=== PATIENT | male | born 1955 | race African-American/Black ===

== ENCOUNTER 2018-12-07 05:09 | Inpatient (IN) ==
[2018-12-07 05:49] LABS: Basophils % 0.2 % (0.0-0.8); Eosinophils % 0.1 % (0.00-10.9); Hematocrit 42.4 VOL% (42.0-52.0); Hemoglobin 13.6 GM/DL (14.0-18.0); Immature Granulocytes % 0.3 %; Immature Granulocytes Absolute 0.04 #; Lymphocytes # 1.5 10*3/uL (1.4-4.0); Lymphocytes % 12.8 % (21.2-54.2); Mean Corpuscular HGB Conc 32.1 GM/DL (32-36); Mean Corpuscular Volume 90.2 FL (87-102); Mean Platelet Volume 10.4 FL (9.6-12.0); Monocytes % 6.6 % (1.7-12.7); Platelet Count 255 T/CUMM (130-400); Red Cell Distribution Width 12.4 % (9.3-17.3); White Blood Count 11.7 T/CUMM (4-12)
[2018-12-07 05:56] LABS: PT Patient Result 10.7 SECS; Partial Thromboplastin Time 30.6 SECS (0-40)
[2018-12-07 06:02] LABS: Albumin 3.9 G/DL (3.4-5.0); Bilirubin,Total 0.7 MG/DL (0.2-1.0); Calcium 9.2 MG/DL (8.5-10.1); Osmolality,Calculated 277.5 MOS/KG (273-304)
[2018-12-07] MEDS ORDERED: NITROGLYCERIN 2% OINT 1 INCH/GM PACK TOP STA (06:10)
[2018-12-07] MEDS ORDERED: ONDANSETRON 4 MG/2 ML VIAL IV PRN ×2 (06:10→06:43)
[2018-12-07] MEDS ORDERED: ENOXAPARIN 100 MG/ML SYRINGE SUBCUT STA (06:10)
[2018-12-07] MEDS ORDERED: METOPROLOL TARTRATE 5 MG/5 ML VIAL IV STA (06:10)
[2018-12-07] MEDS ORDERED: MORPHINE 4 MG/1 ML VIAL IV PRN (06:10)
[2018-12-07] MEDS ORDERED: MAGNESIUM SULF RIDER 2 GM in PREMIX 1 EACH IV PRN (06:43)
[2018-12-07] MEDS ORDERED: ACETAMINOPHEN 325 MG TABLET PO PRN (06:43)
[2018-12-07] MEDS ORDERED: DOCUSATE SODIUM 100 MG CAPSULE PO PRN (06:43)
[2018-12-07] MEDS ORDERED: NITROGLYCERIN DRIP 50 MG/250 ML BOTTLE IV PRN (06:48)
[2018-12-07] MEDS ORDERED: NICOTINE 21 MG/24 HR PATCH TRANSDERM PRN (06:49)
[2018-12-07] MEDS ORDERED: hydrALAZINE 20 MG/1 ML VIAL ONE (07:08)
[2018-12-07] MEDS ORDERED: hydrALAZINE 20 MG/1 ML VIAL IV STA (07:13)
[2018-12-07] MEDS: ATORVASTATIN 40 MG TABLET PO SCH (10:12)
[2018-12-07] MEDS: PANTOPRAZOLE 40 MG TABLET PO SCH (10:12)
[2018-12-07] MEDS ORDERED: ALUM/MAG/SIMETH/LIDO VISC 1:1 30 ML BOTTLE PO ONE (11:04)
[2018-12-07] MEDS: LOSARTAN 25 MG TABLET PO SCH ×2 (11:21→20:50)
[2018-12-07] MEDS ORDERED: hydrALAZINE 20 MG/1 ML VIAL IV PRN (11:34)
[2018-12-07] MEDS: CARVEDILOL 12.5 MG TABLET PO SCH ×2 (13:10→20:50)
[2018-12-07 13:24] LABS: Troponin I < 0.015 NG/ML (0.00-0.045)
[2018-12-07 15:31] LABS: Troponin I < 0.015 NG/ML (0.00-0.045)
[2018-12-07] MEDS: niCARdipine INJ 25 MG in SODIUM CHLORIDE 0.9% 240 ML IV PRN ×2 (15:56→18:30)
[2018-12-07] MEDS ORDERED: ENOXAPARIN 40 MG/0.4 ML SYRINGE SUBCUT SCH (16:30)
[2018-12-07] MEDS ORDERED: ENOXAPARIN 100 MG/ML SYRINGE SUBCUT SCH (18:00)
[2018-12-07] MEDS: MORPHINE 4 MG/1 ML VIAL IV PRN ×2 (18:08→21:28)
[2018-12-07] MEDS ORDERED: CARVEDILOL 12.5 MG TABLET PO SCH (21:00)
[2018-12-07] MEDS: niCARdipine INJ 50 MG in SODIUM CHLORIDE 0.9% 480 ML IV PRN (21:29)
[2018-12-08] MEDS: MORPHINE 4 MG/1 ML VIAL IV PRN ×2 (04:10→09:45)
[2018-12-08] MEDS: niCARdipine INJ 50 MG in SODIUM CHLORIDE 0.9% 480 ML IV PRN (04:11)
[2018-12-08 04:30] LABS: Basophils % 0.1 % (0.0-0.8); Eosinophils % 0.2 % (0.00-10.9); Hematocrit 46.8 VOL% (42.0-52.0); Hemoglobin 14.7 GM/DL (14.0-18.0); Immature Granulocytes % 0.4 %; Immature Granulocytes Absolute 0.06 #; Lymphocytes # 1.9 10*3/uL (1.4-4.0); Lymphocytes % 12.7 % (21.2-54.2); Mean Corpuscular HGB Conc 31.4 GM/DL (32-36); Mean Corpuscular Volume 90.3 FL (87-102); Mean Platelet Volume 10.3 FL (9.6-12.0); Monocytes % 8.1 % (1.7-12.7); Neutrophils % 78.5 % (38.7-73.9); Platelet Count 277 T/CUMM (130-400); Red Blood Count 5.18 MC/CUMM (3.8-5.5); Red Cell Distribution Width 12.5 % (9.3-17.3); White Blood Count 14.8 T/CUMM (4-12)
[2018-12-08 04:52] LABS: Albumin 3.2 G/DL (3.4-5.0); Bilirubin,Total 0.9 MG/DL (0.2-1.0); Osmolality,Calculated 281.4 MOS/KG (273-304); Risk Ratio 2.76; Total Protein 7.5 G/DL (6.4-8.3); VLDL CHOLESTEROL 34.6 MG/DL
[2018-12-08] MEDS: PANTOPRAZOLE 40 MG TABLET PO SCH (08:42)
[2018-12-08] MEDS: amLODIPine 10 MG TABLET PO SCH (08:42)
[2018-12-08] MEDS: LOSARTAN 50 MG TABLET PO SCH ×2 (08:42→22:17)
[2018-12-08] MEDS: CARVEDILOL 25 MG TABLET PO SCH ×2 (08:42→22:17)
[2018-12-08] MEDS: ATORVASTATIN 40 MG TABLET PO SCH (08:42)
[2018-12-08] MEDS ORDERED: amLODIPine 5 MG TABLET PO SCH (13:00)
[2018-12-08] MEDS: ASPIRIN EC 81 MG TABLET PO SCH (13:25)
[2018-12-09 05:06] LABS: Basophils % 0.2 % (0.0-0.8); Eosinophils # 0.1 10*3/uL (0.0-0.87); Eosinophils % 1.2 % (0.00-10.9); Hematocrit 40.5 VOL% (42.0-52.0); Hemoglobin 12.9 GM/DL (14.0-18.0); Immature Granulocytes % 0.4 %; Immature Granulocytes Absolute 0.04 #; Lymphocytes # 3.2 10*3/uL (1.4-4.0); Lymphocytes % 28.9 % (21.2-54.2); Mean Corpuscular HGB Conc 31.9 GM/DL (32-36); Mean Corpuscular Volume 91.4 FL (87-102); Mean Platelet Volume 10.6 FL (9.6-12.0); Monocytes % 9.1 % (1.7-12.7); Neutrophils % 60.2 % (38.7-73.9); Platelet Count 256 T/CUMM (130-400); Red Blood Count 4.43 MC/CUMM (3.8-5.5); Red Cell Distribution Width 12.4 % (9.3-17.3)
[2018-12-09 05:29] LABS: Calcium 8.8 MG/DL (8.5-10.1); Osmolality,Calculated 284.1 MOS/KG (273-304)
[2018-12-09] MEDS ORDERED: LACTATED RINGERS 500 ML IV SCH (08:00)
[2018-12-09] MEDS ORDERED: LIDOCAINE 2% 5 ML VIAL ONE (10:00)
[2018-12-09] MEDS ORDERED: PROPOFOL 500 MG/50 ML BOTTLE IV ONE (10:00)
[2018-12-09] MEDS ORDERED: SUCRALFATE 1 GM/10 ML UDCUP PO SCH (11:30)
[2018-12-09] MEDS: CARVEDILOL 25 MG TABLET PO SCH (11:38)
[2018-12-09] MEDS: ASPIRIN EC 81 MG TABLET PO SCH (11:38)
[2018-12-09] MEDS: LOSARTAN 50 MG TABLET PO SCH (11:38)
[2018-12-09] MEDS: amLODIPine 10 MG TABLET PO SCH (11:38)
[2018-12-09] MEDS: PANTOPRAZOLE 40 MG TABLET PO SCH (11:39)
[2018-12-09 11:45] VITALS: BP 166/88
[2018-12-09] MEDS ORDERED: PANTOPRAZOLE 40 MG TABLET PO SCH (21:00)
== END 2018-12-09 14:55 | disposition home or self-care (01) | DRG 305 ==
LOC: EDBD → EDUNIT# → EDSEX → SUATTDRO → N.EDINP 05:09 → N.SDSINP 05:09 → N.ED 05:09 → N.TELES 08:30 → N.ICU 15:41 → N.TELEN 12-08 20:13
PROVIDERS: ADMIT Internal Medicine; ATTEND Emergency Medicine